=== PATIENT | female | born 1975 | race Caucasian/White ===

== ENCOUNTER 2020-12-03 14:11 | Outpatient (REF) | payer OTHER, SELFPAY ==
--- NOTE | 2020-12-03 14:17 | MM_ITS ---
EXAMINATION: MM SCREENING DIGITAL BREAST TOMOSYNTHESIS, BILATERAL CLINICAL INFORMATION: Screening. Asymptomatic. The lifetime risk of breast cancer based on the Tyrer-Cuzick Model is 13%. COMPARISON: Mammography: 09/29/2019, 06/09/2019, 06/04/2018; bilateral breast ultrasound 09/29/2019 TECHNIQUE: Digital breast tomosynthesis is performed in both the craniocaudal and mediolateral oblique views along with computer-aided detection (CAD). Synthesized 2D images are generated from the tomosynthesis. Additional right MLO view is provided. FINDINGS: The breasts are extremely dense, which lowers the sensitivity of mammography (ACR BI-RADS breast composition Category d). There are no significant masses, abnormal calcifications, or other abnormalities. There is a biopsy clip marker again seen upper outer quadrant left breast. No developing density. No significant changes. MM/MM tomosynthesis screening BI IMPRESSION: No mammographic evidence of malignancy. ASSESSMENT: BI-RADS 1: Negative RECOMMENDATION: Routine annual mammography screening. This patient's information was entered into a reminder system with a target due date for their next mammogram.
== END 2020-12-03 14:12 | disposition home or self-care (01) ==
LOC: HO.MAMMO 14:11
PROVIDERS: PCP Pediatrics; Visit Provider Pediatrics
DX: Z12.31 Encounter for screening mammogram for malignant neoplasm of breast (principal)
CPT/HCPCS: 77063; 77067

== ENCOUNTER 2021-07-27 15:29 | Emergency (ER) | payer OTHER, SELFPAY ==
[2021-07-27 15:38] VITALS: BP 136/87; PULSE 77; RESP 16; TEMP 36.8; O2SAT 98; BMI 33.5
--- NOTE | 2021-07-27 16:21 | ED_ITS ---
HPI - General Adult General Chief complaint: Burn/Smoke Inhalation Stated complaint: burn Time Seen by Provider: 07/27/21 16:20 Source: patient Limitations: no limitations History of Present Illness HPI narrative: Patient states she was making chicken wings with oil. And some grease splatter on her right forearm. Positive peeling and painful skin blister. Symptoms are moderate to severe pain is 7/10. Patient is unsure of her last tetanus status. Onset of symptoms today she immediately washed the wound at home and added cold water. No other complaints at this time. Related Data Previous Rx's Medication Instructions Recorded ibuprofen 600 mg tablet 600 mg PO TID PRN #30 tab 07/27/21 silver sulfadiazine 1 % topical 1 appl TOPICAL BID #20 g 07/27/21 cream (Silvadene) Allergies Allergy/AdvReac Type Severity Reaction Status Date / Time No Known Allergies Allergy Unverified 08/11/20 16:16 [No Known Allergies*] seasonal Allergy Unknown Uncoded 10/02/17 00:00 Review of Systems Constitutional: Constitutional: Denies chills and Denies fever(s) ENT: Denies sore throat Cardiovascular: Cardiovascular: Denies chest pain and Denies dyspnea Respiratory: Respiratory: Denies dyspnea Musculoskeletal: Comments: Right forearm pain secondary to burn Integumentary/Breasts: Comments: Blistering of the right forearm secondary to burn PMFSH Past Medical History Attestation statement: The following information was validated with the patient. Medical History Asthma Social History Social History Advance Directives: No Advance Directives Information Provided: Yes Patient : No Physical Exam Vital Signs: Vital Signs: Last Vital Signs Temp 98.3 F 07/27/21 15:38 Pulse 77 07/27/21 15:38 Resp 16 07/27/21 15:38 BP 136/87 07/27/21 15:38 Pulse Ox 98 07/27/21 15:38 Body Mass Index 33.5 vital signs have been reviewed as normal and appeared to be correct. Blood pressure normal. Heart rate normal. Respiration rate normal. Temperature normal. Oxygen saturation normal. Appearance: Alert. Oriented X3. No acute distress. Head: Normal external exam. Normocephalic. Atraumatic. Eyes: PERRLA. EOMI. Conjunctiva and sclera normal. ENT: Pharynx normal. Uvula midline. Moist mucous membranes. Neck: Soft full range of motion, no JVD CVS: Heart regular rate and rhythm no murmurs and rubs Respiratory: Breath sounds are clear to auscultation bilaterally. No accessory muscle use noted. Skin: Right forearm for 5 cm oval blistering burn noted no lymphangitis po sitive sensation Extremities: Positive tenderness right forearm secondary to burn less than 1% Neuro: Oriented X 3. No motor deficit. No sensory deficit. Reflexes normal. Course Course Course Narrative: First degree burn Second-degree burn Thermal burn Patient unsure of tetanus status 0.5 mL Tdap IM Silvadene dressing applied by Nursing tolerated well Discharge Plan Discharge Clinical Impression: Second degree burn injury Patient Disposition: Home, Self-Care Instructions: Second Degree Burn (ED) Additional Instructions: Silvadene dressings daily Rest elevation Prescriptions: New silver sulfadiazine [Silvadene] 1 % cream 1 appl topical BID Qty: 20 RF: 0 ibuprofen 600 mg tablet 600 mg PO TID PRN (Reason: pain) Qty: 30 RF: 0 Print Language: Qatari
[2021-07-27] MEDS: Diphth,Pertus(ACell),Tet Adult 0.5 ML SYRINGE IM (16:37)
[2021-07-27] MEDS: Silver Sulfadiazine 1 % Cream 20 GM TUBE 1 APPL TOPICAL (16:37)
== END 2021-07-27 16:42 | disposition home or self-care (01) ==
PROVIDERS: Emergency Provider Emergency Medicine Emergency Medical Services; PCP Pediatrics
DX: T22.211A Burn of second degree of right forearm, initial encounter (principal); T31.0 Burns involving less than 10% of body surface; M79.631 Pain in right forearm; X10.2XXA Contact with fats and cooking oils, initial encounter; Y93.9 Activity, unspecified; Y92.9 Unspecified place or not applicable; Y99.9 Unspecified external cause status; Z79.899 Other long term (current) drug therapy
CPT/HCPCS: 16020; 90471; 90715; 99283; 99284

== ENCOUNTER 2022-03-07 07:37 | Outpatient (REF) | payer OTHER, SELFPAY ==
--- NOTE | ~2022-03-07 | MM_ITS ---
EXAMINATION: MM SCREENING DIGITAL BREAST TOMOSYNTHESIS, BILATERAL CLINICAL INFORMATION: Screening. Asymptomatic. The lifetime risk of breast cancer based on the Tyrer-Cuzick Model is 15%. COMPARISON: Mammography: 12/03/2020, 09/29/2019 06/09/2019, 06/04/2018 TECHNIQUE: Digital breast tomosynthesis is performed in both the craniocaudal and mediolateral oblique views along with computer-aided detection (CAD). Synthesized 2D images are generated from the tomosynthesis. FINDINGS: The breasts are extremely dense, which lowers the sensitivity of mammography (ACR BI-RADS breast composition Category d). There are no significant masses, abnormal calcifications, or other abnormalities. Parenchymal pattern is similar to prior studies. Punctate round calcifications are stable. No developing density or interval architectural changes. There is biopsy clip marker again noted left breast mid upper outer quadrant. There are bilateral nipple piercings. There is stable intramammary node posterior upper outer left breast. There are bilateral nipple piercings. MM/MM tomosynthesis screening BI IMPRESSION: No mammographic evidence of malignancy. ASSESSMENT: BI-RADS 2: Benign RECOMMENDATION: Routine annual mammography screening. This patient's information was entered into a reminder system with a target due date for their next mammogram.
== END 2022-03-07 07:38 | disposition home or self-care (01) ==
LOC: HO.MAMMO 07:37
PROVIDERS: PCP Pediatrics; Visit Provider Advanced Practice Midwife
DX: Z12.31 Encounter for screening mammogram for malignant neoplasm of breast (principal)
CPT/HCPCS: 77063; 77067

== ENCOUNTER 2022-05-10 10:16 | Outpatient (REF) | payer OTHER, SELFPAY ==
--- NOTE | ~2022-05-10 | MR_ITS ---
EXAMINATION: MR BREAST WITHOUT AND WITH CONTRAST, BILATERAL CLINICAL INFORMATION: High-risk screening. Dense breasts. Family history of breast cancer including sister and grandmother. COMPARISON: MRI 01/13/2018. Mammography from 03/07/2022. TECHNIQUE: Imaging was performed with a dedicated breast coil. Prior to the administration of contrast, bilateral axial T1 and bilateral axial T2 weighted sequences were obtained. After the uneventful administration of?8.5 mL of Gadavist, dynamic contrast-enhanced VIBRANT series through the breasts in the axial plane were performed. Subtracted images were performed and reviewed. A delayed sagittal sequence through both breasts was acquired. Additionally, CAD post-processing, including maximum intensity projections, 3-D reconstructions and kinetic analysis, were performed an independent workstation and reviewed by the interpreting radiologist is a portion of this exam. FINDINGS: The breasts are comprised of dense fibroglandular parenchyma. The tissue undergoes moderate background enhancement. LEFT BREAST: Biopsy clip artifact at 2 o'clock (image 45/29) with minor residual non-mass enhancement following prior benign MR biopsy 2017. Amidst moderate background enhancement, no new suspicious mass or non-mass enhancement. Stable intraparenchymal node in the upper outer quadrant. RIGHT BREAST: No suspicious mass or dominant nonmass enhancement. There is no suspicious internal mammary chain or axillary adenopathy. Limited views of the chest and abdomen are unremarkable. MR/MR breast BI wo/w con IMPRESSION: No MR specific evidence of malignancy. ASSESSMENT: LEFT BREAST: BI-RADS 2, benign findings. RIGHT BREAST: BI-RADS 1, negative exam. RECOMMENDATIONS: One-year follow up bilateral breast MRI.
== END 2022-05-10 10:17 | disposition home or self-care (01) ==
LOC: HO.MRI 10:16
PROVIDERS: Visit Provider Advanced Practice Midwife
DX: R92.2 Inconclusive mammogram (principal); Z80.3 Family history of malignant neoplasm of breast
CPT/HCPCS: 77049; A9585

== ENCOUNTER 2023-01-07 11:36 | Outpatient (REF) | payer OTHER, SELFPAY ==
--- NOTE | ~2023-01-07 | XR_ITS ---
EXAMINATION: XR AP STANDING VIEW BOTH KNEES. XR KNEE, RIGHT. CLINICAL INFORMATION: Right knee pain COMPARISON: None TECHNIQUE: AP standing view of both knees. Lateral and sunrise views of the right knee. FINDINGS: There is severe patellofemoral compartment osteoarthritis with lateral subluxation of the patella and prominent marginal osteophytes. Small marginal osteophytes also in the medial and lateral compartments. No joint effusion. No fracture. Mild medial compartment osteoarthritis of the left knee in the AP view. XR/XR knee standing BI IMPRESSION: Severe right patellofemoral compartment osteoarthritis with lateral subluxation of the patella. Mild/moderate medial/lateral compartment osteoarthritis. Mild medial compartment osteoarthritis of the left knee.
--- NOTE | ~2023-01-07 | XR_ITS ---
EXAMINATION: XR AP STANDING VIEW BOTH KNEES. XR KNEE, RIGHT. CLINICAL INFORMATION: Right knee pain COMPARISON: None TECHNIQUE: AP standing view of both knees. Lateral and sunrise views of the right knee. FINDINGS: There is severe patellofemoral compartment osteoarthritis with lateral subluxation of the patella and prominent marginal osteophytes. Small marginal osteophytes also in the medial and lateral compartments. No joint effusion. No fracture. Mild medial compartment osteoarthritis of the left knee in the AP view. XR/XR knee RT 2V IMPRESSION: Severe right patellofemoral compartment osteoarthritis with lateral subluxation of the patella. Mild/moderate medial/lateral compartment osteoarthritis. Mild medial compartment osteoarthritis of the left knee.
== END 2023-01-07 11:37 | disposition home or self-care (01) ==
LOC: HO.HOSX 11:36
PROVIDERS: Visit Provider Orthopaedic Surgery
DX: M17.11 Unilateral primary osteoarthritis, right knee (principal)
CPT/HCPCS: 20610; 73560; 73565; 99202; J1100

== ENCOUNTER → 2023-03-19 13:12 | Outpatient (BNVA) | payer OTHER, SELFPAY | PROVIDERS: PCP Pediatrics; Visit Provider Nurse Practitioner Family | DX: Z12.11 Encounter for screening for malignant neoplasm of colon (principal); K59.04 Chronic idiopathic constipation; Z80.0 Family history of malignant neoplasm of digestive organs | CPT/HCPCS: 99202 ==

== ENCOUNTER 2023-04-03 09:24 | Outpatient (REF) | payer OTHER, SELFPAY ==
--- NOTE | ~2023-04-03 | MM_ITS ---
EXAMINATION: MM SCREENING DIGITAL BREAST TOMOSYNTHESIS, BILATERAL CLINICAL INFORMATION: Screening. Asymptomatic. The lifetime risk of breast cancer based on the Tyrer-Cuzick Model is 18%. COMPARISON: Mammography: 03/07/2022, 12/03/2020, 09/29/2019; MRI breasts 05/10/2022. TECHNIQUE: Digital breast tomosynthesis is performed in both the craniocaudal and mediolateral oblique views along with computer-aided detection (CAD). Synthesized 2D images are generated from the tomosynthesis. FINDINGS: The breasts are extremely dense, which lowers the sensitivity of mammography (ACR BI-RADS breast composition Category d). Breast tissue composition borders on heterogeneously dense. There are no significant masses, abnormal calcifications, or other abnormalities. There is a biopsy clip marker mid upper outer left breast. No developing density. No architectural abnormality. The axilla are unremarkable. There are bilateral nipple piercings. MM/MM tomosynthesis screening BI IMPRESSION: No mammographic evidence of malignancy. ASSESSMENT: BI-RADS 1: Negative RECOMMENDATION: Routine annual mammography screening. This patient's information was entered into a reminder system with a target due date for their next mammogram.
== END 2023-04-03 09:25 | disposition home or self-care (01) ==
LOC: HO.MAMMO 09:24
PROVIDERS: PCP Pediatrics; Visit Provider Pediatrics
DX: Z12.31 Encounter for screening mammogram for malignant neoplasm of breast (principal)
CPT/HCPCS: 77063; 77067

== ENCOUNTER → 2023-05-07 14:00 | Outpatient (BNVA) | payer OTHER, SELFPAY | PROVIDERS: Visit Provider Nurse Practitioner Family | DX: Z12.11 Encounter for screening for malignant neoplasm of colon (principal); K59.04 Chronic idiopathic constipation | CPT/HCPCS: 99212 ==

== ENCOUNTER 2023-06-11 14:36 | Outpatient (AMB) | payer OTHER, SELFPAY ==
[2023-06-11 14:47] VITALS: BP 120/76; BMI 35.6
--- NOTE | 2023-06-11 14:47 | A.OFFVIS_ITS ---
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 HPV Positive/HHC Ref Clinical Implementation Specialist Required: No Information Interpreted: non-clinical & clinical Accompanied by: Self / Same As Patient Allergies No Known Allergies [No Known Allergies*] Allergy (Verified 06/11/23 14:56) seasonal Allergy (Unknown, Uncoded 06/11/23 14:56) Sneezing Is last menstrual period known: Yes Last menstrual period: 06/02/23 HPI HPI Comments History of Present Illness Details Presenting referred from [facility] regarding normal Pap smear/HPV positive E6/E7 [facility] Medical History Asthma Surgical History Hx of breast biopsy Hx of tubal ligation Family History Mother Heart disease Chronic asthma HTN (hypertension) Hypoglycemia Vitamin A deficiency Stroke Thyroid adenoma Father Diabetes 1.5, managed as type 2 High cholesterol Thyroid adenoma Brother Diabetes 1.5, managed as type 2 Social History Household Members: Family Alcohol intake: never Patient Tobacco Use Status: Never used Tobacco Current occupational status: employed 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 Female Reproductive History Menstrual Date of last menstrual period: 06/02/23 control method: permanent sterilization Review of Systems Const All systems reviewed & are unremarkable except as noted in HPI and below Physical Exam Vital Signs: Last Vital Signs BP 120/76 06/11/23 14:47 BMI result Body Mass Index 35.6 Cardio Other: Patient declined and exam today Assessment & Plan Assessment & Plan (1) Cervical high risk HPV (human papillomavirus) test positive: Code(s): R87.810 - Cervical high risk human papillomavirus (HPV) DNA test positive Plan: Discussed with the patient the result of her pap/HPV positive, its significance, risk of progression, persistence, and regression if untreated. the false positive/negative rate being a screening test, recommended as a next step diagnostic test -colposcopy, biopsy, endocervical curettage. Instructions given the patient to schedule a colposcopy biopsy /ECC in 2 weeks . The patient verbalized understanding and agreed with the plan, all questions answered. Coding Level of Care Code New Pt Level 3 (53281) Diagnoses Cervical high risk HPV (human papillomavirus) test positive R87.817
== END 2023-06-11 15:51 | disposition home or self-care (01) ==
LOC: HO.HWS 14:36
PROVIDERS: PCP Pediatrics; Visit Provider Obstetrics & Gynecology
DX: R87.810 Cervical high risk human papillomavirus (HPV) DNA test positive (principal)
CPT/HCPCS: 99203

== ENCOUNTER → 2023-06-11 14:36 | Outpatient (BNVA) | payer OTHER, SELFPAY | PROVIDERS: PCP Pediatrics; Visit Provider Obstetrics & Gynecology | DX: R87.810 Cervical high risk human papillomavirus (HPV) DNA test positive (principal) | CPT/HCPCS: 99202 ==

== ENCOUNTER 2023-06-25 08:11 | Outpatient (AMB) | payer OTHER, SELFPAY ==
[2023-06-25 08:22] VITALS: BP 120/70; BMI 35.7
--- NOTE | 2023-06-25 08:22 | MHC.OFFVIS ---
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 ([place]) Allergies No Known Allergies [No Known Allergies*] Allergy (Verified 06/25/23 08:24) seasonal Allergy (Unknown, Uncoded 06/25/23 08:24) Sneezing Post menopausal: No PFSH Medical History Asthma Surgical History Hx of breast biopsy Hx of tubal ligation Family History Mother Heart disease Chronic asthma HTN (hypertension) Hypoglycemia Vitamin A deficiency Stroke Thyroid adenoma Father Diabetes 1.5, managed as type 2 High cholesterol Thyroid adenoma Brother Diabetes 1.5, managed as type 2 Social History Household Members: Family Alcohol intake: never Patient Tobacco Use Status: Never used Tobacco Current occupational status: employed 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 Female Reproductive History Menstrual Duration of menses: 3-5 days control method: permanent sterilization Date of last pap smear: 02/18/19 (negative) Date of Mammogram: 04/03/23 Physical Exam Vital Signs: Last Vital Signs BP 120/70 06/25/23 08:22 BMI result Body Mass Index 35.7 Office Procedures Colposcopy Before the procedure was started discussed with the patient the procedure, alternatives & all the risks associated with the procedure (bleeding, infection, injury to vagina, bladder, vessels, possible need for transfusion with all its risks) then patient signed the consent Pap smear = negative Pap/HPV positive Urine test done in the office was negative Speculum inserted, acetic acid used Colposcopy done Transformation zone seen, acetowhite lesions identified at 1+3+5 o?clock, cervical biopsies taken from +3+5 o?clock, ECC done afterwards. Vaginoscopy of the upper vagina showed no evidence of any aceto-white lesions Monsel solution used for hemostasis. The patient tolerated well . At the end the patient was instructed to call if temp>100.4, abdominal pain, n/v, bleeding; The patient was given the following instructions: nothing per vagina, no intercourse or bath tub use. All questions answered the patient verbalized understanding. Instructed the patient to make an appointment in 2 weeks for follow-up This note was generated with a voice recognition program. Some errors may have been overlooked during the review of this note. Sometimes these errors may affect the content or meaning of a given sentence. 03480-[id number] of cervix including upper vagina with biopsy and ECC Procedure code (CPT) selection complete Assessment & Plan Assessment & Plan Orders: Orders AMB Colposcopy Today R87.810 - Cervical high risk human papillomavirus (HPV) DNA test positive Coding Level of Care Code Procedure Only Diagnoses CPT Codes Colposcopy - CPT: 26660-Chvxyoogc of cervix including upper vagina with biopsy and ECC ([id number])
== END 2023-06-25 08:37 | disposition home or self-care (01) ==
LOC: HO.HWS 08:11
PROVIDERS: PCP Pediatrics; Visit Provider Obstetrics & Gynecology
DX: R87.810 Cervical high risk human papillomavirus (HPV) DNA test positive (principal)
CPT/HCPCS: 57454

== ENCOUNTER 2023-06-25 08:11 | Outpatient (REF) | payer OTHER, SELFPAY | END 2023-06-25 08:12 | disposition home or self-care (01) | LOC: HO.LNP 08:11 | PROVIDERS: PCP Pediatrics; Visit Provider Obstetrics & Gynecology | DX: R87.810 Cervical high risk human papillomavirus (HPV) DNA test positive (principal) | CPT/HCPCS: 57454; 81025; 88305 ==

== ENCOUNTER 2023-08-07 12:46 | Outpatient (AMB) | payer OTHER, SELFPAY ==
--- NOTE | 2023-08-07 12:49 | A.OFFVIS_ITS ---
Intake Vital Signs 08/07/23 12:50 Height 5 ft 4 in Weight 208 lb BMI 35.7 BP 122/74 Intake Visit Reasons: colpo results Recycling Coordinator Required: No Allergies No Known Allergies [No Known Allergies*] Allergy (Verified 08/07/23 12:50) seasonal Allergy (Unknown, Uncoded 08/07/23 12:50) Sneezing Post menopausal: No Patient : No HPI HPI Comments History of Present Illness Details Presenting post colpo for follow-up. The patient is doing well with no complaints. The pathology showed the following: A. Cervix, 1:00, biopsy: Squamous mucosa and scant detached endocervical glandular epithelium; negative for dysplasia. B. Cervix, 3:00, biopsy: Squamous mucosa with focal inflammation and reactive changes; negative for dysplasia; no endocervical glandular component present. C. Cervix, 5:00, biopsy: Squamous and endocervical glandular mucosa some nausea. D. Endocervix, curettage: Scant endocervical glandular and squamous epithelium; negative for dysplasia PFSH Medical History Asthma Surgical History Hx of tubal ligation Hx of breast biopsy Family History Mother Heart disease Chronic asthma HTN (hypertension) Hypoglycemia Vitamin A deficiency Stroke Thyroid adenoma Father Diabetes 1.5, managed as type 2 High cholesterol Thyroid adenoma Brother Diabetes 1.5, managed as type 2 Social History Household Members: Family Alcohol intake: never Patient Tobacco Use Status: Never used Tobacco Current occupational status: employed Current occupation: [employer] Female Reproductive History Menstrual control method: permanent sterilization Review of Systems Const All systems reviewed & are unremarkable except as noted in HPI and below Reports as per HPI and Reports no additional complaints GI Reports no additional complaints Reports no additional complaints Physical Exam Vital Signs: Last Vital Signs BP 122/74 08/07/23 12:50 BMI result Body Mass Index 35.7 Assessment & Plan Assessment & Plan (1) Cervical high risk HPV (human papillomavirus) test positive: Code(s): R87.810 - Cervical high risk human papillomavirus (HPV) DNA test positive Plan: Discussed with the patient the pathology results of the colposcopy biopsies & endocervical curettage ( negative). Discussed with the patient the sensitivity specificity, positive and negative predictive value in detecting cervical cancer in addition discussed the regression, persistence and progression rates. Recommended co-testing in 12 months, if cytology and or HPV are abnormal will proceed was colposcopy biopsy and endocervical curettage. Instructions given to the patient to schedule a co test appointment in 1 year. All questions answered the patient verbalized understanding. Coding Level of Care Code Est Pt Level 3 (86471) Diagnoses Cervical high risk HPV (human papillomavirus) test positive R87.810
[2023-08-07 12:50] VITALS: BP 122/74; BMI 35.7
== END 2023-08-07 12:56 | disposition home or self-care (01) ==
PROVIDERS: PCP Pediatrics; Visit Provider Obstetrics & Gynecology
DX: R87.810 Cervical high risk human papillomavirus (HPV) DNA test positive (principal)
CPT/HCPCS: 99213

== ENCOUNTER → 2023-08-07 12:46 | Outpatient (BNVA) | payer OTHER, SELFPAY | PROVIDERS: PCP Pediatrics; Visit Provider Obstetrics & Gynecology | DX: R87.810 Cervical high risk human papillomavirus (HPV) DNA test positive (principal) | CPT/HCPCS: 99212 ==

== ENCOUNTER 2024-02-27 13:09 | Day surgery (SDC) | payer OTHER, SELFPAY ==
--- NOTE | 2024-02-25 15:36 | HO.ANESPROP2 ---
Documented by User: Nehal Hudson NP 02/25/24 15:37 HPI - Anesthesia Eval Consult details Narrative: 48yo F for Colonoscopy PMFSH Active Problems Active Problems: All Active Problems (Updated 06/11/23 @ 14:57 by Enoc Parada MD) Cervical high risk HPV (human papillomavirus) test positive (Acute) Osteoarthritis of right knee (Acute) Past Medical History Medical History Asthma Family History Family History Mother Heart disease Chronic asthma HTN (hypertension) Hypoglycemia Vitamin A deficiency Stroke Thyroid adenoma Father Diabetes 1.5, managed as type 2 High cholesterol Thyroid adenoma Brother Diabetes 1.5, managed as type 2 Surgical History Surgical History Hx of tubal ligation Hx of breast biopsy Social History Social History Household Members: Family Alcohol intake: never Patient Tobacco Use Status: Never used Tobacco Use of substances other than those prescribed or required for medical reasons: No Are you DNR?: No Advance Directives: No Advance Directives Information Provided: Yes Current occupational status: employed 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 Allergies Allergy/AdvReac Type Severity Reaction Status Date / Time No Known Allergies Allergy Verified 08/07/23 12:50 [No Known Allergies*] seasonal Allergy Unknown Sneezing Uncoded 08/07/23 12:50 Home Medications ?Medication ?Instructions ?Recorded ?Confirmed ?Last Taken ?Type albuterol sulfate 2.5 mg/3 mL 2.5 mg inhalation Q6H PRN wheezing 03/19/23 02/27/24 Unknown History (0.083 %) solution for nebulization albuterol sulfate 90 mcg/actuation 90 mcg inhalation Q4H PRN 03/19/23 02/27/24 Unknown History aerosol inhaler Shortness Of Breath Or Wheezing cholecalciferol (vitamin D3) 25 25 mcg PO DAILY 03/19/23 02/27/24 Unknown History mcg (1,000 unit) tablet ibuprofen 800 mg tablet 800 mg PO TID 03/19/23 02/27/24 Unknown History loratadine 10 mg tablet 10 mg PO DAILY 03/19/23 02/27/24 Unknown History mirtazapine 15 mg tablet 15 mg PO BEDTIME 03/19/23 02/27/24 Unknown History Assessment and Plan Assessment Anesthesia Assessment: Chart Reviewed Documented by User: Darwin Xiao MD 02/27/24 14:12 [facility] Past Medical History Medical History Asthma Family History Family History Mother Heart disease Chronic asthma HTN (hypertension) Hypoglycemia Vitamin A deficiency Stroke Thyroid adenoma Father Diabetes 1.5, managed as type 2 High cholesterol Thyroid adenoma Brother Diabetes 1.5, managed as type 2 Family history of problems with anesthesia: No Surgical History Surgical History Hx of tubal ligation Hx of breast biopsy History of Problems with Anesthesia: No Social History Social History Household Members: Family Alcohol intake: never Patient Tobacco Use Status: Never used Tobacco Use of substances other than those prescribed or required for medical reasons: No Are you DNR?: No Advance Directives: No Advance Directives Information Provided: Yes Current occupational status: employed 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 Allergies Allergy/AdvReac Type Severity Reaction Status Date / Time No Known Allergies Allergy Verified 08/07/23 12:50 [No Known Allergies*] seasonal Allergy Unknown Sneezing Uncoded 08/07/23 12:50 Home Medications ?Medication ?Instructions ?Recorded ?Confirmed ?Last Taken ?Type albuterol sulfate 2.5 mg/3 mL 2.5 mg inhalation Q6H PRN wheezing 03/19/23 02/27/24 Unknown History (0.083 %) solution for nebulization albuterol sulfate 90 mcg/actuation 90 mcg inhalation Q4H PRN 03/19/23 02/27/24 Unknown History aerosol inhaler Shortness Of Breath Or Wheezing cholecalciferol (vitamin D3) 25 25 mcg PO DAILY 03/19/23 02/27/24 Unknown History mcg (1,000 unit) tablet ibuprofen 800 mg tablet 800 mg PO TID 03/19/23 02/27/24 Unknown History loratadine 10 mg tablet 10 mg PO DAILY 03/19/23 02/27/24 Unknown History mirtazapine 15 mg tablet 15 mg PO BEDTIME 03/19/23 02/27/24 Unknown History Exam Airway Mallampati Class: III TM Dist: <=3cm Neck ROM: Full Loose/Missing/Broken Teeth: No Heart: rrr Lungs: cta Assessment and Plan Assessment Anesthesia Assessment: Anesthesia Plan Discussed Final Anesthetic Review Family History of Problems with Anesthesia: No History of Problems with Anesthesia: No NPO: Yes ASA Class: III Final Preanesthetic Review: No Changes in Pt Med Stat, Meds/Allgs Chart Reviewed, Consent Obtained/Reviewed and Anes Risks/Benef Reviewed Patient Risk: Intermediate Procedure Risk: Intermediate Anesthetic Plan Anesthetic Plan: MAC: Disposition: Standard PACU
[2024-02-27 13:29] VITALS: BMI 34.3
[2024-02-27 13:36] VITALS: BP 148/96; PULSE 93; RESP 18; TEMP 36.3; O2SAT 100
[2024-02-27] MEDS: Lactated Ringers 1,000 ML 100 ML IVCONT (13:50)
--- NOTE | 2024-02-27 14:20 | P.OP_ITS ---
Operative Note Operative Note Date of Service: 02/27/24 Narrative: Procedure: Colonoscopy Indication: Screening Endoscopist: Yanira Noble MD Anesthesia Provider: Leonor Harper CRNA Anesthesia type: MAC Instrument: Olympus [id number]-H190L Consent: Indication, risks vs benefits, and alternatives were discussed with the patient who gave written informed consent to proceed. EKG, pulse, pulse oximetry and blood pressure were monitored throughout the procedure. Please see anesthesia flowsheet. Procedure: The patient was brought to the procedure room and placed in the left lateral decubitus position. IV medications were administered by the anesthesia provider in attendance. A digital rectal exam was performed which was normal. A distal attachment cap was affixed to the tip of the scope and the colonoscope was then inserted through the anus and advanced through the colon to the cecum at 75 cm,and terminal ileum. Ileocecal valve and appendiceal orifice were identified. Mucosa was carefully examined under high definition white light as the instrument was slowly withdrawn in a retrograde panoramic fashion. Retroflexion was performed in ascending colon and rectum. The procedure was not difficult. There were no immediate obvious complications. The quality of the prep was BBPS: 2+2+2 = adequate Withdrawal time 8 minutes. Limitations: No limitations. Findings: Mucosa: Normal to cecum and terminal ileum. Protruding lesions: * Small internal hemorrhoids without stigmata of recent bleeding. Impression: 1. Normal colon and terminal ileum mucosa 2. Internal hemorrhoids Recommendations: - repeat colonoscopy in 10 years for asymptomatic colorectal cancer screening
--- NOTE | 2024-02-27 14:20 | MHC.SHP ---
Pre-Procedural Eval Section A - 24 Hr Update-Section A only Date of Service: 02/27/24 Section B - Complete if H&P > 30 days Chief Complaint: Encounter for screening for malignant neoplasm of Details of Present Illness: Asthma Surgical History Hx of breast biopsy Hx of tubal ligation Allergies: Allergies Allergy/AdvReac Type Severity Reaction Status Date / Time No Known Allergies Allergy Verified 08/07/23 12:50 [No Known Allergies*] seasonal Allergy Unknown Sneezing Uncoded 08/07/23 12:50 Review of Systems Review of Systems Comment: Ten point ROS negative Exam Exam Comment: Gen appear: No acute distress HEENT: no icterus Chest: No overt resp distress Abd: soft, nontender, nondistended Psych: Stable affect, answering questions appropriately Neuro: A/Ox3 noted to move all extremities spontaneously Ext: no peripheral edema Plan Diagnosis/Plan: Unchanged I have reviewed the history and physical and performed a pertinent physical examination on my patient. No changes have occurred unless specified. Time Spent With Patient Time: Total time managing care of this patient today ____ minutes.
[2024-02-27 14:51] VITALS: BP 116/59; PULSE 88; RESP 16; TEMP 36.4; O2SAT 99
[2024-02-27 15:04] VITALS: BP 116/59; PULSE 88; RESP 16; TEMP 36.4; O2SAT 99
[2024-02-27] MEDS: ondansetron HCL 4 MG/2 ML VIAL IVPUSH (15:15)
--- NOTE | 2024-02-27 15:33 | PC.NURSE ---
PT BECAME NAUSEIOUS WHILE DRESSING GIVEN ZOFRAN WITH GOOD EFFECT. TO BR IV DC'D
== END 2024-02-27 15:41 | disposition home or self-care (01) ==
PROVIDERS: PCP Pediatrics; Visit Provider Internal Medicine
PROC: 0DJD8ZZ Inspection of Lower Intestinal Tract, Via Natural or Artificial Opening Endoscopic (ICD-10-PCS; CPT 45378; principal; 2024-02-27 16:20)
DX: Z12.11 Encounter for screening for malignant neoplasm of colon (principal); K64.8 Other hemorrhoids; J45.909 Unspecified asthma, uncomplicated
CPT/HCPCS: G0121; J2405; J2704

== ENCOUNTER → 2024-02-27 13:09 | Outpatient (BNV) | payer OTHER, SELFPAY | PROVIDERS: PCP Pediatrics; Visit Provider Internal Medicine | DX: Z12.11 Encounter for screening for malignant neoplasm of colon (principal); K64.8 Other hemorrhoids | CPT/HCPCS: G0121 ==

== ENCOUNTER 2024-03-11 08:01 | Outpatient (AMB) | payer OTHER, SELFPAY ==
--- NOTE | 2024-03-11 08:02 | A.OFFVIS_ITS ---
Intake Vital Signs 03/11/24 08:14 Height 5 ft 4 in Weight 20 lb BMI 3.4 BP 121/71 Blood Pressure Location Lt brachial Position Sitting Pulse 67 Intake Visit Reasons: S/P Rittman; Dr Noble Intake Note: Rhonda presents in the office as a follow up colonoscopy. CC: She is not having any concerns since her procedure. Hydrology Professor Required: No Allergies Seasonal Allergies Allergy (Mild, Verified 03/11/24 08:12) Sneezing HPI S/P Rittman; Dr Noble HPI Details LAST VISIT Screen for colon cancer Patient denies any GI, cardiac or respiratory symptoms.? Denies any issues with anesthesia in the past.? Denies any history of sleep apnea.? No history infectious diseases in the past or present.? Not on any anticoagulation therapy.? No family or personal history of colon cancer or polyps.? Patient denies melena, hematochezia, unintentional weight loss or ribbon like stools.? Discussed at length the pre-procedure,? prep, diet & medications as well as what to expect prior, during and after the procedure.?? Stressed the importance of good bowel prep. ?Recommended the use of Vaseline or Calmoseptine OTC & baby wipes with bowel movements to promote comfort.? ?Patient verbalizes understanding and agrees to plan of care.? She was given the opportunity to ask questions and all questions answered.? We will see her after the procedure.? Chronic idiopathic constipation Continue Senokot. Discussed with patient increasing fluid intake and activity to promote bowel motility. I will see her after the procedure, sooner on as needed basis. Patient is agreeable to this plan and verbalizes understanding of instructions. She was given the opportunity to ask questions and all questions answered. ? Thank you for allowing me to participate in her care Plan Medications New bisacodyl (Dulcolax (bisacodyl)) take 2 tabs at noon the day before your colonoscopy 10 mg (2 x 5 mg) PO ONCE 1 day 2 tabs 0RF Z12.11 - Encounter for screening for malignant neoplasm of colon polyethylene glycol 3350 (Miralax) As directed by gastro[facility]ology department at [facility] 238 grams PO ONCE 238 grams 0RF Z12.11 - Encounter for screening for malignant neoplasm of colon Discontinued silver sulfadiazine 1% (Silvadene) apply a 1.5 mm thickness Discontinued Reason: Patient Completed Course 1 appl topical BID 20 grams 0RF COLONOSCOPY Findings: Mucosa: Normal to cecum and terminal ileum. Protruding lesions: * Small internal hemorrhoids without stigmata of recent bleeding. Impression: 1. Normal colon and terminal ileum mucos a 2. Internal hemorrhoids Recommendations: - repeat colonoscopy in 10 years for asy mptomatic colorectal cancer screening TODAY'S VISIT: Patient is here today for follow-up and to discuss colonoscopy results.. Patient denies any ill effects from the prep, anesthesia or procedure itself. Patient reports that she has been feeling well. Patient had normal colonoscopy. Recommendation was made for asymptomatic colorectal screening in 10 years. Patient denies any GI concerning symptoms except for occasional constipation. Patient used to take Senokot in the past and it reported that it was working. Patient denies melena, hematochezia, unintentional weight loss or ribbon like stools. Denies any dyspepsia, dysphagia or odynophagia. 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 Review of Systems Const Denies weight gain and Denies weight loss ENT Reports no additional complaints, Denies dysphagia and Denies odynophagia Card Reports no additional complaints Resp Reports no additional complaints GI Denies abdominal pain, Denies belching, Denies melena, Denies bloating, Reports constipation (Occasional), Denies dysphagia, Denies excessive flatus, Denies dyspepsia, Denies heartburn, Denies diarrhea, Denies loose stools, Denies nausea, Denies odynophagia and Denies vomiting Reports no additional complaints Musc Reports no additional complaints Neuro Reports no additional complaints Psych Reports no additional complaints Endo Reports no additional complaints Physical Exam Vital Signs: Last Vital Signs Pulse 67 03/11/24 08:14 BP 121/71 03/11/24 08:14 BMI result Body Mass Index 3.4 Const General: healthy appearing, no acute distress and well developed Nutritional Appearance: well nourished Orientation/consciousness: patient oriented x3 Resp Effort & Inspection: normal respiratory effort, able to speak in complete sentences, no tracheal deviation and symmetric chest movement Auscultation: clear to auscultation bilaterally Cardio Rate: regular rate GI Inspection: Yes normal to inspection, No distended and Yes obesity Palpation (GI): Soft to palpation, not firm, nontender and No hepatosplenomegaly present Auscultation: normal bowel sounds General: Yes no CVA tenderness Back/Spine/Pelvis Back: no CVA tenderness Skin General skin exam: elasticity normal, turgor normal and dry skin Neuro General: patient oriented x3 Psych Appearance: grossly normal Mental Status: mental status grossly normal Assessment & Plan Assessment & Plan (1) Status post colonoscopy: Code(s): Z98.890 - Other specified postprocedural states (2) Constipation: Code(s): K59.00 - Constipation, unspecified Qualifiers: Constipation type: slow transit constipation Qualified Code(s): K59.01 - Slow transit constipation Plan Asymptomatic colorectal screening in 10 years. Patient was encouraged to increase fluid intake and activity to promote better bowel motility. Patient can take Senokot 2 tablets daily. Return to the office in 6 months, sooner on as needed basis. Patient is agreeable to this plan and verbalizes understanding of instructions. She was given the opportunity to ask questions and all questions answered. Thank you for allowing me to participate in her care Medications: Refilled sennosides (Natural Senna Laxative) 17.2 mg (2 x 8.6 mg) PO BEDTIME 180 tabs 3RF constipation K59.00 - Constipation, unspecified Coding Level of Care Code Est Pt Level 3 (65602) Diagnoses Status post colonoscopy Z98.890 Slow transit constipation K59.01 Constipation type: slow transit constipation Time Spent (min) 25 Comment 15 minutes spent with patient and additional 10 minutes spent reviewing her records
[2024-03-11 08:14] VITALS: BP 121/71; PULSE 67
== END 2024-03-11 08:35 | disposition home or self-care (01) ==
PROVIDERS: PCP Pediatrics; Visit Provider Nurse Practitioner Family
DX: Z98.890 Other specified postprocedural states (principal); K59.01 Slow transit constipation
CPT/HCPCS: 99213

== ENCOUNTER → 2024-03-11 08:01 | Outpatient (BNVA) | payer OTHER, SELFPAY | PROVIDERS: PCP Pediatrics; Visit Provider Nurse Practitioner Family | DX: K59.01 Slow transit constipation (principal); Z98.890 Other specified postprocedural states | CPT/HCPCS: 99212 ==

== ENCOUNTER 2024-04-08 09:03 | Outpatient (REF) | payer OTHER, SELFPAY ==
--- NOTE | ~2024-04-08 | MM_ITS ---
EXAMINATION: MM SCREENING DIGITAL BREAST TOMOSYNTHESIS, BILATERAL CLINICAL INFORMATION: Screening. Asymptomatic. COMPARISON: Mammography: This study is compared with prior exams dating back to 2019. TECHNIQUE: Digital breast tomosynthesis is performed in both the craniocaudal and mediolateral oblique views along with computer-aided detection (CAD). Synthesized 2D images are generated from the tomosynthesis. FINDINGS: The breasts are heterogeneously dense, which may obscure small masses (ACR BI-RADS breast composition Category c). The patient has bilateral nipple rings. There is a tissue marker in the upper outer quadrant of the left breast from prior benign percutaneous biopsy. There are no significant masses, abnormal calcifications, or other abnormalities. MM/MM tomosynthesis screening BI IMPRESSION: No mammographic evidence of malignancy. ASSESSMENT: BI-RADS BI-RADS 2 - Benign Findings RECOMMENDATION: Routine annual mammography screening. 1 year F/U This examination should not preclude the clinical evaluation of a suspicious palpable abnormality. This patient's information was entered into a reminder system with a target due date for their next mammogram.
== END 2024-04-08 09:04 | disposition home or self-care (01) ==
LOC: HO.MAMMO 09:03
PROVIDERS: PCP Pediatrics; Visit Provider Pediatrics
DX: Z12.31 Encounter for screening mammogram for malignant neoplasm of breast (principal)
CPT/HCPCS: 77063; 77067

== ENCOUNTER → 2024-04-08 09:15 | Outpatient (BNV) | payer OTHER, SELFPAY | PROVIDERS: PCP Pediatrics; Visit Provider Radiology Diagnostic Radiology | DX: Z12.31 Encounter for screening mammogram for malignant neoplasm of breast (principal) | CPT/HCPCS: 77063; 77067 ==

== ENCOUNTER 2024-08-18 13:45 | Outpatient (REF) | payer OTHER, SELFPAY ==
[2024-08-21 16:34] LABS: HPV mRNA E6/E7 Not Detected (Not Detected)
== END 2024-08-18 13:46 | disposition home or self-care (01) ==
LOC: HO.LNP 13:45
PROVIDERS: PCP Pediatrics; Visit Provider Obstetrics & Gynecology
DX: Z01.419 Encounter for gynecological examination (general) (routine) without abnormal findings (principal)
CPT/HCPCS: 87624; 88175

== ENCOUNTER 2024-08-18 13:45 | Outpatient (AMB) | payer OTHER, SELFPAY ==
[2024-08-18 13:59] VITALS: BMI 34.1
--- NOTE | 2024-08-18 13:59 | MHC.OFFVIS ---
Vital Signs 08/18/24 13:59 Height 5 ft 4 in Weight 198 lb 6.656 oz BMI 34.1 Intake Visit Reasons: co testing Pipe Washer Required: No Information Interpreted: non-clinical & clinical Medical Technologist Blood Bank: Medical Technologist Blood Bank Present ([place] FERRARI) Accompanied by: Self / Same As Patient Allergies Seasonal Allergies Allergy (Mild, Verified 08/18/24 14:00) Sneezing Post menopausal: Yes HPI Comments Details: Presenting for annual exam. No complaints. Last Pap/HPV was negative/HPV E6/ 7 positive, colpo/biopsy/ECC negative Last Mammogram was in 04/17 BI-RADS 2 Last colonoscopy was in 03/18 was negative, the recommendation was to repeat in 10 years [facility] Medical History Cervical high risk HPV (human papillomavirus) test positive Asthma Surgical History Hx of colonoscopy Hx of tubal ligation Hx of breast biopsy Family History Mother Heart disease Chronic asthma HTN (hypertension) Hypoglycemia Vitamin A deficiency Stroke Thyroid adenoma Father Diabetes 1.5, managed as type 2 High cholesterol Thyroid adenoma Brother Diabetes 1.5, managed as type 2 Social History Household Members: Family Alcohol intake: never Patient Tobacco Use Status: Never used Tobacco Current occupational status: employed 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 Review of Systems Const All systems reviewed & are unremarkable except as noted in HPI and below Card Reports as per HPI Resp Reports as per HPI GI Reports as per HPI and Reports no additional complaints Reports as per HPI Physical Exam Const General: cooperative, healthy appearing and comfortable Chest Chest palpation & inspection: normal inspection of the chest and normal palpation of entire chest wall Breast/axilla inspection: normal inspection of the breasts and normal inspection of the axillae Breast/axilla palpation: normal palpation of the breasts, normal palpation of the axillae and no axillary lymphadenopathy Resp Effort & Inspection: normal respiratory effort Auscultation: clear to auscultation bilaterally Percussion: percussion normal Cardio Palpation: normal PMI Rate: regular rate Rhythm: regular rhythm Heart sounds: no murmurs and no rubs Peripheral pulses: Peripheral pulses 2+ throughout GI Inspection: Yes normal to inspection Palpation (GI): Soft to palpation, nontender, no guarding, not rigid and No hepatosplenomegaly present Percussion: Yes normal to percussion Auscultation: normal bowel sounds Rectal Exam - Female: deferred General: Yes bladder normal to palpation External Female Exam: No lesion Speculum Exam - Vagina: normal appearance of the vagina, normal palpation, normal vaginal discharge and not erythematous Speculum Exam - Cervix: normal appearance of the cervix and normal palpation Bimanual exam- vagina & uterus: normal bimanual exam, normal palpation, uterine size normal, bladder normal to palpation, consistency normal and normal palpation Bimanual Exam- Adnexa, other: normal adnexae, no masses and no tenderness Assessment & Plan Assessment & Plan (1) Well woman exam: Code(s): Z01.419 - Encounter for gynecological examination (general) (routine) without abnormal findings Category: Medical Plan: Cotesting done. Instructions given the patient to schedule next screening mammogram in 04/18 Counseled the patient about the recommended dietary allowance of 1000 mg of Calcium & 600 IU of vitamin D. The patient was instructed to perform monthly self-breast exams and to schedule an annual exam in a year; All questions answered and the patient verbalized understanding. Instructed the patient to schedule annual exam in a year Coding Level of Care Code Est Pt Prev Care 40-64y(67041) Diagnoses Well woman exam Z01.419
== END 2024-08-18 14:08 | disposition home or self-care (01) ==
LOC: HO.HWS 13:45
PROVIDERS: PCP Pediatrics; Visit Provider Obstetrics & Gynecology
DX: Z01.419 Encounter for gynecological examination (general) (routine) without abnormal findings (principal)
CPT/HCPCS: 99396

== ENCOUNTER 2024-08-27 12:00 | Outpatient (REF) | payer MEDICAID, SELFPAY ==
[2024-08-27 16:05] LABS: CT PCR NOT DETECTED (Not Detect.); NG PCR NOT DETECTED (Not Detect.)
[2024-08-28 08:10] LABS: HIV AB/AG Nonreactive (Nonreactive); HIV Num 1 0.04 S/CO (0.00-0.99); ~HepC Num1 0.11 S/CO (0.00-0.79); ~Hepatitis C Antibody Nonreactive (Nonreactive)
[2024-08-28 08:12] LABS: Syphilis Screen Nonreactive (Nonreactive)
== END 2024-08-27 12:01 | disposition home or self-care (01) ==
LOC: HO.CHCLDS 12:00
PROVIDERS: Visit Provider Pediatrics
DX: Z11.3 Encounter for screening for infections with a predominantly sexual mode of transmission (principal)
CPT/HCPCS: 36415; 86780; 86803; 87389; 87491; 87591

== ENCOUNTER 2024-10-27 11:24 | Outpatient (REF) | payer MEDICAID, SELFPAY ==
[2024-10-28 17:43] LABS: Mumps Virus IgG Antibody <9.00 AU/mL; Rubella IgG Antibody 1.34 Index; Rubeola IgG (Measles) >300.00 AU/mL
--- OUTSIDE RECORDS SUMMARY | 2024-11-03 13:25 | XMS_ITS | Data Portability ---
Author Organization [facility] Address [address] [place] [id number] Care Team Providers Care Naval Gunfire Spotter Name Role Phone LEXIS CROWLEYESSA Primary Care Provider [phone] Assessment Encounter Date Assessment Date Assessment LastModified by Organization Details LastModified Time 08/30/2023 08/30/2023 47 yo F with sxs c/f post-viral pneumonia. Pt is afebrile with SpO2 98% on RA. Has recently been on prednisone for asthma exacerbation. Will treat with azithromycin and augmentin for 5 day course. Patient has precautions for call back or ED. [email or web address] Not available 08/30/2023 15:53:42 Plan of Treatment Reminders Order Date Submit Date Provider Last Modified By Organization Details Last Modified Time Details Appointments None recorded. Lab None recorded. Referral None recorded. Procedures None recorded. Surgeries None recorded. Imaging None recorded. Medication Orders azithromyci n 250 mg tablet 2022 023 [email or web address] Not available 13:24:38 Augmentin 875 mg-125 mg tablet 2022 023 [facility][id number], [address] [place], [address], 13:24:40 Patient TargetsNo targets recorded. Patient InstructionsNo instructions recorded. Reason for Referral None Reported. Medical Equipment None Reported. Medications Name Sig Start Date Stop Date Status Note LastModified by Organization Details LastModified Time cyclobenzapr ine 10 mg tablet PLEASE SEE ATTACHED FOR DETAILED DIRECTIONS active Not Available Not Available N ot Available albuterol sulfate 2.5 mg/3 mL (0.083 %) solution for nebulization USE 3 ML AMP VIA NEBULIZER MACHINE EVERY 6 HOURS NEEDED FOR WHEEZING active Not Available Not Available No t Available azithromycin 250 mg tablet Take 1 tablet (250mg) daily for 4 days 2022 active Not Available Not Available Not Avai lable ibuprofen 800 mg tablet active Not Available Not Available Not Available senna 8.6 mg tablet TAKE 2 TABLETS BY MOUTH AT BEDTIME FOR CONSTIPATIO N active Not Available Not Available No t Available prednisone 20 mg tablet TAKE 2 TABLETS BY MOUTH IN THE MORNING FOR 5 DAYS active Not Available Not Available N ot Available sulfamethoxa zole 800 mg-trimethop rim 160 mg tablet TAKE 1 TABLET BY MOUTH EVERY 12 HOURS active Not Available Not Available No t Available mirtazapine 30 mg tablet TAKE 1 TABLET BY MOUTH EVERY DAY IN THE EVENING active Not Available Not Available No t Available mirtazapine 15 mg tablet TAKE 1 TABLET BY MOUTH EVERY DAY IN THE EVENING active Not Available Not Available No t Available albuterol sulfate HFA 90 mcg/actuatio n aerosol inhaler INHALE 2 BY PUFFS BY MOUTH EVERY 4 HOURS NEEDED active Not Available Not Available No t Available loratadine 10 mg tablet TAKE 1 TABLET BY MOUTH EVERY DAY active Not Available Not Available No t Available amoxicillin 875 mg-potassium clavulanate 125 mg tablet TAKE 1 TABLET BY MOUTH EVERY 12 HOURS FOR 5 DAYS active Not Available Not Available N ot Available Laxative (bisacodyl) 5 mg tablet,delay ed release TAKE 2 TABLETS BY MOUTH FOR 1 DAY (TAKE AT NOON BEFORE THE COLONOSCOPY ) active Not Available Not Available No t Available Flovent HFA 220 mcg/actuatio n aerosol inhaler active Not Available Not Available Not Available Purelax 17 gram/dose oral powder DISSOLVE 238 GRAMS ORALLY ONCE A DIRECTED BY [facility] AT [facility] active Not Available Not Available No t Available Vitals Date Recorded Respiratory rate Body temperature Oxygen saturation Oxygen saturation in Arterial blood by Pulse oximetry Body weight Heart rate Systolic blood pressure Diastolic blood pressure Provider Name and Address Organization Details Last Updated DateTime 3 16 /min 98 [degF] 98 % 98 % 31758.4 8 g 107 /min 132 mm[Hg] 86 mm[Hg] Not Available [facility] - production 3 13:18:48 Social History None recorded. Functional Status None recorded. Mental Status None recorded. Family History Nothing Reported. Medical History No medical history recorded. Gynecological HistoryNo gynecological history recorded. Obstetrics History GPAL:G 0 P 0 0 0 0 Past Encounters Encounter ID Performer Location Encounter Start Date Encounter Closed Date Diagnosis/Indication Diagnosis SNOMED-CT Code Diagnosis ICD10 Code [id number] DOMINGO PERRY MD [address] [address] 08/30/2023 13:18:45 09/03/2023 00:26:18 Community acquired pneumonia [id number] J18.9 Health Concerns Section Related Observation LastModified by Organization Detai ls LastModified Time None Recorded Concern Status LastModified by Organization Details LastModified Time None Recorded Advance Directives Directive None Recorded Payers Encounter Date Sequence Insurance Name Policy Number Policy Marie Covered Member ID Marie Member ID Guarantor Name 08/30/2023 1 [facility] - DOS ON OR AFTER 2023 - DUAL ELIGIBLE - USP OPTIONS AND ONE CARE (MEDICARE REPLACEMENT/ADV ANTAGE - HMO) Rhonda Alcocer [id number] Rhonda Alcocer Notes Date Note Type Note Provider Name and Address Organization Details Recorded Time 08/30/2023 text/html HPI: Patient with underlying asthma. Seen 08/21/23 and diagnosed with Acute Bronchitis put on 5 day burst of Prednisone. Completed as instructed. Is using nebulizer and Nyquil due to severe cough. On phone tight frequent cough noted. Fluid intake is good. Nebulizer providing minimal relief and patient is SOB with exertion. No chest pain. .................. .................. .................. .................. .................. .................. .................. ............... CRC Nursing Assessment: Comments: CRC RN did not require any additional information to process this visit. .................. .................. .................. .................. .................. .................. .................. ............... Farm Planner Note From Jose Celestean: Pt CO SOB and cough since about 08/21. Pt was [place] [facility] [place] [facility] [place] and was told that she had bronchitis and was put on a course or prednisone for 5 days. Pt stated minimal relief. Pt is also using her nebulizer q8. Pt states gives some relief of moving the phlegm out, but not that much relief. Pt is able to completed full sentences, but then will cough after. Pt states that her phlegm in the morning is brownish in color and then throughout the day turns a yellowish color. Pt denies any chest Pr/NVD/fevers. Neg COVID/Flu swabs. Lungs pos wheezing upper bi-lat, pos rales lower bi-lat. Pt given 500m azithromycin PO. Discussed red flags of when to go to ED or call 911. Educated Pt on supportive care. Pt understood. .................. .................. .................. .................. .................. .................. .................. ............... Disposition: Fulfilled DOMINGO PERRY MD [address] [facility],[address], [place], [address], [employer] 08/30/2023 15:53:54 OBGyn Episode No OBEpisode recorded.
== END 2024-10-27 11:25 | disposition home or self-care (01) ==
LOC: HO.CHCLDS 11:24
PROVIDERS: Visit Provider Pediatrics
DX: Z01.84 Encounter for antibody response examination (principal)
CPT/HCPCS: 36415; 86735; 86762; 86765

== ENCOUNTER 2025-04-21 08:21 | Outpatient (REF) | payer MEDICAID, SELFPAY ==
--- OUTSIDE RECORDS SUMMARY | 2025-04-21 08:34 | XMS_ITS | Clinical Summary ---
Author Organization [facility] ity Address [address] [place] [address] Care Team Providers Care Executive Director Global Brand Marketing Name Role Phone Unavailable Primary Care Provider Unavailabl e Social History Tobacco Use Types Packs/Day Years Used Date Smoking Tobacco: Never Assessed Comments Unknown Sex and Gender Information Value Date Recorded Sex Assigned at Not on file Legal Sex Female 3:31 PM EST Gender Identity Not on file Sexual Orientation Not on file Plan of Treatment Health Maintenance Due Date Last Done Comments Breast Cancer Screening 1973 DTaP,Tdap,and Td Vaccines (1 - Tdap) 1992 Hepatitis B Vaccines (1 of 3 - 19+ 3-dose series) 1992 Cervical Cancer Screening: P ap Smear 1994 Pneumococcal Vaccine: 50+ Ye ars (1 of 1 - PCV) 2023 Zoster Vaccines (1 of 2) 2023 COVID-19 Vaccine ( - 2023-2 5 season) 2024 Influenza Vaccine (Season Ended) 2025 HIB Vaccines Aged Out No longer eligi ble based on patient's age to complete this topic HPV Vaccines Aged Out No longer eligi ble based on patient's age to complete this topic Hepatitis A Vaccines Aged Out No long er eligible based on patient's age to complete this topic IPV Vaccines Aged Out No longer eligi ble based on patient's age to complete this topic MMR Vaccines Aged Out No longer eligi ble based on patient's age to complete this topic Meningococcal ACWY Vaccine Aged Out N o longer eligible based on patient's age to complete this topic Meningococcal B Vaccine Aged Out No l onger eligible based on patient's age to complete this topic Pneumococcal Vaccine: Pediat rics (0 to 5 Years) and At-Risk Patients (6 to 64 Years) Aged Out No longer eligible b ased on patient's age to complete this topic RSV Immunization Patients Un debra 20 months Aged Out No longer eligible b ased on patient's age to complete this topic Varicella Vaccines Aged Out No longer eligible based on patient's age to complete this topic
[2025-04-21 14:26] LABS: MANUAL DIFF FLAG NO
[2025-04-21 14:35] LABS: Basophils Absolute Auto 0.1 X10*3/uL (0.0-0.2); Basophils Percent Auto 1.1 % (0-2); Eosinophils Absolute Auto 0.2 X10*3/uL (0.0-0.4); Eosinophils Percent Auto 3.6 % (0-4); Hematocrit 40.8 % (37.0-47.0); Hemoglobin 12.7 g/dl (12.0-16.0); Imm Gran Abs Auto 0.02 X10*3/uL (0.00-0.03); Imm Gran Pct Auto 0.3 % (0.0-0.4); Lymphocytes Absolute Auto 1.5 X10*3/uL (1.2-4.9); Lymphocytes Percent Auto 22.7 % (20-40); Mean Corpuscular HGB Conc 31.1 g/dl (31.0-35.0); Mean Corpuscular Hemoglobin 26.2 pg (27.0-33.0); Mean Corpuscular Volume 84.1 fL (80.0-98.0); Mean Platelet Volume 11.8 fL (9.4-12.3); Monocytes Absolute Auto 0.4 X10*3/uL (0.1-1.2); Monocytes Percent Auto 5.8 % (2-11); Neutrophils Absolute Auto 4.4 x10*3/uL (2.0-8.3); Neutrophils Percent Auto 66.5 % (45-73); Platelet Count 227 X10*3/uL (160-400); Red Blood Count 4.85 X10*6/uL (4.20-5.50); Red Cell Distribution Width 13.6 % (11.0-16.0); White Blood Count 6.6 X10*3/uL (4.8-10.8)
[2025-04-21 14:54] LABS: Alanine Aminotransferase 15 U/L (0-31); Albumin Level 4.2 g/dL (3.5-5.0); Alkaline Phosphatase 119 U/L (39-117); Anion Gap 11 (12-20); Aspartate Amino Transferase 21 U/L (5-31); Bilirubin Total 0.4 mg/dL (0.0-1.0); Blood Urea Nitrogen 13 mg/dL (9-16); Calcium 9.2 mg/dL (8.4-10.2); Carbon Dioxide 28 mmol/L (22-29); Chloride 105 mmol/L (96-108); Cholesterol 151 mg/dL (<200); Estimated Glomerular Filt Rate > 60; Glucose Random 95 mg/dL (60-115); HDL Cholesterol 47 mg/dL (>40); LDL Cholesterol Calculated 90 mg/dL (<100); Potassium 4.3 mmol/L (3.3-5.1); Sodium 140 mmol/L (135-145); Total Protein 7.5 g/dL (6.5-8.0); Triglycerides 72 mg/dL (<150)
[2025-04-21 14:58] LABS: TSH reflex Free T4 2.88 uIU/mL (0.32-4.0)
[2025-04-22 08:14] LABS: HIV AB/AG Nonreactive (Nonreactive); HIV Num 1 0.06 S/CO (0.00-0.99); ~HepC Num1 0.15 S/CO (0.00-0.79); ~Hepatitis C Antibody Nonreactive (Nonreactive)
[2025-04-24 15:28] LABS: TS Negative Control Passed; TS Panel A 0; TS Panel B 2; TS Positive Control Passed; TSpotTB Negative (Negative)
== END 2025-04-21 08:22 | disposition home or self-care (01) ==
LOC: HO.CHCLDS 08:21
PROVIDERS: Visit Provider Internal Medicine
DX: Z00.00 Encounter for general adult medical examination without abnormal findings (principal)
CPT/HCPCS: 36415; 80053; 80061; 84443; 85025; 86481; 86803; 87389